=== PATIENT | female | born 1960 | race Caucasian/White ===

== ENCOUNTER → 2016-08-05 | Day surgery (SDC) | payer OTHER ==
--- NOTE | 2016-08-04 10:06 | TH ---
cc: CONSUELO SANCHEZ M.D. DATE: DATE OF : 1960 REASON FOR ADMISSION Removal and replacement of implants with bilateral circumvertical mastopexy. HISTORY OF PRESENT ILLNESS A 55-year-old female who on February 04, 2016 underwent an augmentation mammoplasty. She unfortunately developed some capsule contraction of the left breast and has an resolved breast ptosis, the reason for which we are performing this procedure. PAST MEDICAL HISTORY Hypertension for which she takes amlodipine and triamterene. PHYSICAL EXAMINATION GENERAL APPEARANCE: The patient is a well-developed female in no acute distress. Body habitus is within normal limits. There appear to be no deformities. Appears to have attention to grooming. HEENT: Conjunctiva and lids are within normal anatomical limits. The pupils are reactive to light and accommodation, size and symmetry. There is no evidence of exudate, hemorrhage, or vessel change. The external inspection of the ears and nose fails to demonstrate any pathology, scars, lesions, or masses. Nasal mucosa, septum, and turbinates appear to be well-hydrated as well as the lips and gums. No evidence of masses in the hypopharynx or submental area. CHEST: The patient shows no evidence of intercostal retractions. LUNGS: Clear to auscultation without any abnormal sounds or rubs. CARDIOVASCULAR: The patient has a normal heart rate and rhythm. There is no evidence of noted carotid bruits. Femoral pulses and pedal pulses in the extremities are also within normal limits. ABDOMEN: Soft with no evidence of masses or tenderness. Unable to palpate the liver or spleen. No evidence of hernia. MUSCULOSKELETAL: Appears to be reasonable range of motion of the head, neck, spine, ribs, pelvis, right upper extremity, left upper extremity, right lower extremity, and left lower extremity. The muscle strength and tone appears to be equal and within accepted limits. SKIN: There are no rashes, lesions, or ulcers on the trunk, back or extremities. NEUROLOGICAL: Examination is grossly normal. PSYCHIATRIC: The patient appears to have good orientation of time, place, and person. Does not appear to have any mood affects of depression, anxiety, or agitation. 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 PLAN The plan is to perform the proper capsulectomies reinforced with AlloDerm where needed and re-augment with the SRX 525. The risks and possible complications were discussed with the patient. MD DEBRA Berry/SAMARIA /9:45 AM /9:55 AM
[~2016-08-05] MED LIST: ACETAMINOPHEN 1000 MG/100 ML VIAL IV ONE; ACETAMINOPHEN/HYDROcodone 325 MG/5 MG TAB ONE; AMLO5 PO; BACITRACIN IM FOR SOLN 50,000 UNIT VIAL ONE; BUPIVACAINE/EPINEPHRINE 0.25% 50 ML VIAL ONE; GENTAMICIN SULFATE 80 MG/2 ML VIAL ONE; JINT1TAB OR; LACTATED RINGER'S 1000 ML INJ 1,000 ML ONE; LIDOCAINE 1%/EPINEPHrine 1:100,000 SOLN 30 ML VIAL ONE; LORT5TAB PO; MAXZ25 PO; MIDAZOLAM HCL 2 MG/2 ML VIAL ONE; MORPHINE SULFATE 4 MG/ML INJ ONE; OMEP20CA5 PO; ONDANSETRON HCL 4 MG/2 ML VIAL IV PUSH ONE; PROM25SU8 PO; PROPOFOL 200 MG/20 ML AMP IV ONE; SODIUM CHLORIDE 0.9% 20 ML VIAL ONE; ceFAZolin INJ 1,000 MG VIAL ONE
--- NOTE | 2016-08-05 13:00 | TN ---
cc: CONSUELO SANCHEZ M.D. DATE OF SURGERY 08/05/2016 PREOPERATIVE DIAGNOSIS Status post augmentation mammoplasty with further capsule contraction of the left breast with residual ptosis bilaterally. PROCEDURE Removal, replacement of implants with bilateral capsulorrhaphies, left capsulectomy and re-augmentation with the Natrelle Inspira SRX 525 cc. The serial number of the right breast implant device [id number] and on the left [id number]. She also underwent a reinforcement of the lower pole on the left breast utilizing a 6 x 10 AlloDerm. DRAINS One to the left breast 7 mm. PROCEDURE She was properly consented, marked and anesthetized. The skin was sterilized with Betadine solution and sterile draping applied. A local breast block was done utilizing a total of 60 cc of 1% lidocaine with the epinephrine mixed with 0.25% Marcaine at 2:1 ratio. Through an infra-areolar vertical incision, the pocket was found. The implant was removed. On the left breast, a full capsulectomy needed to be done due to significant thickness of the capsule. Reinforcement was done utilizing a 6 x 10 AlloDerm at the lower inferior poles that was anchored with 2-0 Monocryl suture. The right breast lateral and inferior capsulorrhaphies were done utilizing 0-silk in multiple [id number] fashion and so did on the left breast. Isolation of the NAC and the skin was done with Tegaderm. The new implant was introduced. The patient was sat up. The wound was closed, tailor-tack technique was carried out utilizing surgical caridad to assess the residual of ptosis. Assuring that, the caridad were removed. The skin was de-epithelialized. The NAC was then set at about 22 cm from the sternal notch, 42 mm areolar diameter. The closure of the wounds were as follows. The vertical incision 2-0 Monocryl suture and dermis in the subcu. The nipple-areolar complex a 2-0 PTFE pinwheel suture was utilized reinforced with 2-0 quill suture. Prineo Dermabond was applied thereafter. Good viability of tissue was noted at the end of the case. The patient was awakened and extubated in the operating room, transferred back to the postanesthesia care unit in stable condition. No complications were appreciated. The patient tolerated the procedure fairly well. MD DEBRA Berry/ANGELO /12:46 PM /12:53 PM
== END | disposition home or self-care (01) ==
LOC: ESDC 09:53
PROVIDERS: ATTEND Plastic Surgery
DX: Z41.1 Encounter for cosmetic surgery (principal); I10 Essential (primary) hypertension
CPT/HCPCS: 00402; 15777; 19325; 19328; C1789; J0131; J0690; J1580; J2250; J2270; J2405; J3010; J7120; Q4116; C1781